=== PATIENT | male | born 1970 | race Caucasian/White ===

== ENCOUNTER 2018-11-16 23:50 | Emergency (ER) | payer BC ==
[~2018-11-16] VITALS: Ht 177.8 cm; Wt 90.7 kg
[2018-11-17 01:32] LABS: BASOPHIL % 0.3 % (0.0-0.2); EOSINOPHIL # 0.3 10^3/uL (0.0-0.2); HEMOGLOBIN 16.4 g/dL (13.9-16.3); LYMPHOCYTES # 2.5 10^3/uL (1.0-4.8); LYMPHOCYTES % 40.6 % (24.0-44.0); MEAN CELL HGB 31.9 pg (26-34); MEAN CELL HGB CONCENTRATION 35.3 g/dL (33-37); MEAN CORP VOLUME 90.3 fL (78-100); MONOCYTES # 0.8 10^3/uL (0.3-0.8); MONOCYTES % 12.5 % (5.0-12.0); NEUTROPHIL # 2.6 10^3/uL (1.8-7.7); NEUTROPHILS % 41.6 % (41.0-85.0); RED CELL DISTRIBUTION WIDTH 12.7 % (11.5-14.5); WHITE BLOOD CELL 6.2 10^3/uL (4.5-11.0)
[2018-11-17 01:50] LABS: CALCIUM 9.7 mg/dL (8.4-10.5); CARBON DIOXIDE 26.7 mmol/L (20.0-32)
[2018-11-17] MEDS ORDERED: FLAGYL PO STA (02:01)
[2018-11-17] MEDS ORDERED: NS 1000ML 1,000 ML IV STA ×3 (02:01→03:34)
[2018-11-17] MEDS ORDERED: BACTRIM DS PO STA (02:01)
[2018-11-17] MEDS ORDERED: ZOFRAN IV STA (02:01)
--- NOTE | 2018-11-17 02:01 | ER.PDOC ---
General Chief Complaint: Abdomen Pain Stated Complaint: ABD PAIN Time seen by MD: 01:45 Source: patient Exam Limitations: no limitations History of Present Illness Initial Comments 47 YO MALE WITH EXPLOSIVE DIARRHEA, VOMITING AND ABDOMINAL PAIN X 5 DAYS. NO FEVER OR CHILLS. HE ATE LEFT OVER SHRIMPS FEW HOURS PRIOR TO ONSET OF HIS SYMPTOMS. HE TOOK PEPTO BISMOL, IMODIUM FOR RELIEF. HE FEELS BLOATED AND DECREASED APPETITE. Timing/Duration: getting worse Context: bad food Severity/Quality: severe, cramping Radiation: no radiation Associated Symptoms: diarrhea, nausea/vomiting Exacerbated by: nothing Relieved By: nothing Allergies: Coded Allergies: Penicillins (Verified Allergy, Unknown, Shortness of Breath, 11/17/18) Vital Signs First Vital Signs Date Time Temp Pulse Resp B/P (MAP) Pulse Ox O2 Delivery O2 Flow Rate FiO2 11/17/18 01:21 97.6 68 16 97.6 11/17/18 01:21 98 Room Air Last Vital Signs Date Time Temp Pulse Resp B/P (MAP) Pulse Ox O2 Delivery O2 Flow Rate FiO2 11/17/18 01:21 97.6 97.6 11/17/18 01:21 68 16 98 Room Air Past Medical History Medical History: other (PANCREATITIS) Surgical History: appendectomy, other (PYLORIC STERNOSIS REPAIR) Family History Significant Family History: no pertinent family hx Social History Smoking: non-smoker Alcohol Use: heavy Drug Use: none Reviewed Nursing Reviewed: Nursing Assessment Constitutional: denies chills, denies fever EENTM: denies nose congestion Respiratory: denies cough, denies orthopnea, denies shortness of breath Cardiovascular: denies chest pain, denies edema, denies irregular heart rate Gastrointestinal: abdominal pain, diarrhea, nausea, poor appetite Genitourinary: denies dysuria, denies hematuria Musculoskeletal: denies back pain Skin: denies change in color Psychiatric/Neurological: denies anxiety Endocrine: no symptoms reported Physical Exam General Appearance: Anxious, Mild Distress HEENT: PERRL/EOMI, Normal ENT Inspection, Other (DRY ORAL MUCOSAL) Neck: Non-Tender, Full Range of Motion, Supple Respiratory: chest non-tender, lungs clear, normal breath sounds Cardiovascular: Normal Peripheral Pulses, No Edema Gastrointestinal: No Organomegaly, No Pulsatile Mass, Hyperactive bowel sounds, Soft, Tenderness (MILD GENERALIZED) Back: Normal Inspection, No CVA Tenderness Extremities: Normal Range of Motion, Non-Tender, Normal Inspection Neurologic/Psychiatric: Alert, Normal Mood/Affect, Oriented x 3 Skin: Normal Color, Warm/Dry Results/Orders Results/Orders Orders - WILMA MADDOX MD Cbc With Auto Diff (11/17/18 01:21) Comprehensive Metabolic Panel (11/17/18 01:21) Amylase (11/17/18:21) Lipase (11/17/18:21) Helicobacter Pylori (11/17/18:) PT (11/17/18:) Partial Thromboplastin Time. (11/17/18:) Urinalysis (11/17/18:) Vital Signs Date Time Temp Pulse Resp B/P (MAP) Pulse Ox O2 Delivery O2 Flow Rate FiO2 11/17/18 01:21 97.6 97.6 11/17/18 01:21 97.6 68 16 98 Room Air 97.6 11/17/18: 97.6 68 16 97.6 Laboratory Tests Test 11/17/18 01:25 White Blood Count 6.2 10^3/uL (4.5-11.0) Red Blood Count 5.14 10^6/uL (4.50-5.90) Hemoglobin 16.4 g/dL (13.9-16.3) H Hematocrit 46.4 % (37.0-53.0) Mean Corpuscular Volume 90.3 fL (78-100) Mean Corpuscular Hemoglobin 31.9 pg (26-34) Mean Corpuscular Hemoglobin Concent 35.3 g/dL (33-37) Red Cell Distribution Width 12.7 % (11.5-14.5) Platelet Count 234 10^3/uL (150-400) Mean Platelet Volume 9.0 fL (7.8-11.0) Neutrophils (%) (Auto) 41.6 % (41.0-85.0) Lymphocytes (%) (Auto) 40.6 % (24.0-44.0) Monocytes (%) (Auto) 12.5 % (5.0-12.0) H Neutrophils # (Auto) 2.6 10^3/uL (1.8-7.7) Lymphocytes # (Auto) 2.5 10^3/uL (1.0-4.8) Monocytes # (Auto) 0.8 10^3/uL (0.3-0.8) Absolute Immature Granulocyte (auto 0 10^3 u/L (0-2) Immature Granulocytes % 0.00 % (0.00-0.50) Eosinophils % 5.0 % (0.0-5.0) Basophils % 0.3 % (0.0-0.2) H Basophils # 0.0 10^3/uL (0.0-0.1) Eosinophil Count 0.3 10^3/uL (0.0-0.2) H Prothrombin Time 10.1 SEC (9.8-11.9) Prothrombin Time INR (Non-Therap) 1.0 PTT 32.3 SEC (24.67-30.72) Sodium Level 137 mmol/L (132-145) Potassium Level 3.6 mmol/L (3.6-5.2) Chloride Level 101.0 mmol/L (96-109) Carbon Dioxide Level 26.7 mmol/L (20.0-32) Anion Gap 12.9 Blood Urea Nitrogen 23 mg/dL (7-18) H Creatinine 1.17 mg/dL (0.59-1.40) Estimated GFR () 80.2 (>/=60) BUN/Creatinine Ratio 19.0 Glucose Level 94 mg/dL (70-110) Calcium Level 9.7 mg/dL (8.4-10.5) Total Bilirubin 1.5 mg/dL (0.2-1.0) H Aspartate Amino Transferase (AST) 48 U/L (0-35) H Alanine Aminotransferase (ALT) 64 U/L (12-78) Alkaline Phosphatase 59 U/L (50-136) Total Protein 7.7 g/dL (6.4-8.2) Albumin 3.9 g/dL (3.4-5.0) Globulin 3.8 Amylase Level 71 U/L (25-115) Lipase 136 U/L (114-286) Helicobacter pylori Screen NEGATIVE (NEGATIVE) Progress Progress LABS REVIEW DONE. PATIENT STATES HE FEELS BETTER. LIKELY FOOD POISONING FROM LEFT OVER SHRIMPS. Course Vitals & review Data Vital Sign - Last 24 Hours 11/17/18 11/17/18 11/17/18 01:21 01:21 01:21 Temp 97.6 97.6 97.6 97.6 97.6 97.6 Pulse 68 68 Resp 16 16 Pulse Ox 98 O2 Delivery Room Air Laboratory Tests Test 11/17/18 01:25 White Blood Count 6.2 10^3/uL Red Blood Count 5.14 10^6/uL Hemoglobin 16.4 g/dL Hematocrit 46.4 % Mean Corpuscular Volume 90.3 fL Mean Corpuscular Hemoglobin 31.9 pg Mean Corpuscular Hemoglobin Concent 35.3 g/dL Red Cell Distribution Width 12.7 % Platelet Count 234 10^3/uL Mean Platelet Volume 9.0 fL Neutrophils (%) (Auto) 41.6 % Lymphocytes (%) (Auto) 40.6 % Monocytes (%) (Auto) 12.5 % Neutrophils # (Auto) 2.6 10^3/uL Lymphocytes # (Auto) 2.5 10^3/uL Monocytes # (Auto) 0.8 10^3/uL Absolute Immature Granulocyte (auto 0 10^3 u/L Immature Granulocytes % 0.00 % Eosinophils % 5.0 % Basophils % 0.3 % Basophils # 0.0 10^3/uL Eosinophil Count 0.3 10^3/uL Prothrombin Time 10.1 SEC Prothrombin Time INR (Non-Therap) 1.0 Activated Partial Thromboplast Time 32.3 SEC Sodium Level 137 mmol/L Potassium Level 3.6 mmol/L Chloride Level 101.0 mmol/L Carbon Dioxide Level 26.7 mmol/L Anion Gap 12.9 Blood Urea Nitrogen 23 mg/dL Creatinine 1.17 mg/dL Estimated GFR () 80.2 BUN/Creatinine Ratio 19.0 Glucose Level 94 mg/dL Calcium Level 9.7 mg/dL Total Bilirubin 1.5 mg/dL Aspartate Amino Transf (AST/SGOT) 48 U/L Alanine Aminotransferase (ALT/SGPT) 64 U/L Alkaline Phosphatase 59 U/L Total Protein 7.7 g/dL Albumin 3.9 g/dL Globulin 3.8 Amylase Level 71 U/L Lipase 136 U/L Helicobacter pylori Screen NEGATIVE Sepsis Infection Criteria Pres: None O2 Sat by Pulse Oximetry: 98 Departure Time of Disposition: 04:39 Disposition: 01 HOME, SELF-CARE Impression: Primary Impression: Food poisoning Additional Impressions: Gastroenteritis Dehydration Condition: Improved Patient Instructions: Dehydration, Adult, [id number], Diarrhea, [id number], Nausea and Vomiting Referrals: PCP,UNKNOWN (PCP) PRIMARY CARE PROVIDER follow up with your primary care provider for recheck return to the er if your condition worsens Additional Instructions: DRINK PLENTY OF FLUID TO KEEP YOU HYDRATED. DO NOT DRINK ALCOHOL WHILE ON THESE MEDICATIONS. Comments BR[place]GET [place], ALEJA DS Duration or Time Spent with Pa: 60 min Problem Qualifiers Primary Impression: Food poisoning Encounter type: initial encounter Injury intent: accidental or unintentional Qualified Codes: T62.91XA - Toxic effect of unspecified noxious substance eaten as food, accidental (unintentional), initial encounter WILMA MADDOX MD Nov 17, 2018 02:01
[2018-11-17] MEDS ORDERED: ZOFRAN ONE (02:11)
[2018-11-17] MEDS ORDERED: NS 1000ML 1,000 ML ONE ×2 (02:11→03:28)
[2018-11-17] MEDS ORDERED: BACTRIM DS ONE (02:27)
[2018-11-17] MEDS ORDERED: FLAGYL ONE (02:27)
[2018-11-17 04:17] LABS: BILIRUBIN,URINE NEGATIVE (NEGATIVE); UROBILINOGEN,URINE NORMAL (NEGATIVE)
[2018-11-17 04:18] LABS: APPEARANCE,URINE CLEAR (CLEAR); UA COLOR YELLOW (YELLOW)
[2018-11-17 05:02] VITALS: BP 138/80
== END 2018-11-17 04:57 | disposition home or self-care (01) ==
LOC: ER 23:50
DX: T62.91XA Toxic effect of unspecified noxious substance eaten as food, accidental (unintentional), initial encounter (principal); K52.9 Noninfective gastroenteritis and colitis, unspecified; E86.0 Dehydration; Z88.0 Allergy status to penicillin; Z90.49 Acquired absence of other specified parts of digestive tract; Y92.89 Other specified places as the place of occurrence of the external cause
CPT/HCPCS: 36415; 80053; 81002; 82150; 83690; 85025; 85610; 85730; 86677; 96361; 96374; 99285; J2405; J7030 ×2

== ENCOUNTER 2018-12-30 16:31 | Emergency (ER) | payer BC ==
[~2018-12-30] VITALS: Ht 177.8 cm; Wt 93.4 kg
[2018-12-30] MEDS ORDERED: TORADOL IM STA (16:54)
[2018-12-30] MEDS ORDERED: TORADOL ONE (17:17)
--- NOTE | 2018-12-30 17:24 | DIREP ---
PROCEDURE:XRAY RIBS W/PA CHEST 3VWS-RT COMPARISON:None. INDICATIONS:BLUNT TRAUMA FINDINGS: RIBS:No fracture. OTHER:No additional findings. CONCLUSION:No displaced fracture. Dictated by: Blaise Rees MD on 12/30/2018 at 05:22 PM
--- NOTE | 2018-12-30 17:49 | ER.PDOC ---
General Chief Complaint: Requesting Medical Care Stated Complaint: RIB PAIN Time seen by MD: 16:00 Source: patient Exam Limitations: no limitations History of Present Illness Timing/Duration: 24 hours Where: home Context: blow Location of pain/injury: chest Quality/Severity: mild Allergies: Coded Allergies: Penicillins (Verified Allergy, Unknown, Shortness of Breath, 11/17/18) Past Medical History Medical History: no pertinent history Surgical History: appendectomy, other Social History Drug Use: none Reviewed Nursing Reviewed: Vital Signs, Abn. Noted Review of Systems All Other Systems: Reviewed and Negative Physical Exam General Appearance: No Apparent Distress, WD/WN Head: No Evidence of Injury Eyes: bilateral eye normal inspection, bilateral eye PERRL, bilateral eye EOMI Ears, Nose, Throat: Hearing Grossly Normal, No Evidence of ENT Injury, No Dental Injury Respiratory: no respiratory distress, tenderness, decreased breath sounds Cardiovascular/Chest: Normal Peripheral Pulses, Regular Rate, Rhythm, No Edema, No Gallop, No JVD, No Murmur Gastrointestinal: Normal Bowel Sounds, No Organomegaly, No Pulsatile Mass, Non Tender, Soft Back: Normal Inspection, No CVA Tenderness, No Vertebral Tenderness Extremities: No Evidence of Injury, Normal Range of Motion, Non-Tender, No Pedal Edema Neurologic/Psychiatric: case operator II-XII NML as Tested, No Motor/Sensory Deficits, Alert, Normal Mood/Affect, Oriented x 3 Skin: Normal Color, Warm/Dry Orchard Coma Score Orchard Total: 15 Results/Orders Results/Orders Orders - MARYANN CHÁVEZ MD Xr Ribs Rt W/Cxr (12/30/18 16:54) Ketorolac Tromethamine (Toradol) (12/30/18 16:54) Ketorolac Tromethamine (Toradol) (12/30/18 17:17) Vital Signs Date Time Temp Pulse Resp B/P (MAP) Pulse Ox O2 Delivery O2 Flow Rate FiO2 11/17/18 05:02 70 Administered Medications Medications (Trade) Dose Ordered Sig/Yasmin Route PRN Reason Start Time Stop Time Status Last Admin Dose Admin Ketorolac Tromethamine (Toradol) 30 mg STAT STAT IM 12/30/18 16:54 12/30/18 16:56 DC 12/30/18 17:22 30 MG Departure Time of Disposition: 18:00 Disposition: 01 HOME, SELF-CARE Impression: Primary Impression: Chest wall contusion Condition: Improved Referrals: PCP,UNKNOWN (PCP) PRIMARY CARE PROVIDER Duration or Time Spent with Pa: 20 [place] MARYANN CHÁVEZ MD Dec 30, 2018 17:49
[2018-12-30 18:17] VITALS: BP 151/102
[2018-12-30 18:18] VITALS: BP 151/97
== END 2018-12-30 17:58 | disposition home or self-care (01) ==
LOC: ER 16:31
DX: S20.211A Contusion of right front wall of thorax, initial encounter (principal); Z88.0 Allergy status to penicillin; Z90.49 Acquired absence of other specified parts of digestive tract; X58.XXXA Exposure to other specified factors, initial encounter; Y93.89 Activity, other specified; Y92.098 Other place in other non-institutional residence as the place of occurrence of the external cause; Y99.8 Other external cause status
CPT/HCPCS: 71101; 96372; 99284; J1885